=== PATIENT | female | born 1960 | race Caucasian/White ===

== ENCOUNTER 2016-03-12 15:53 | Emergency (ER) | payer MEDICAID ==
[2016-03-12 15:54] VITALS: BMI 30.4
[2016-03-12 16:22] VITALS: TEMP 98.3
[2016-03-12 16:45] LABS: AUTOMATED BASOPHIL 1.2 % (0-2); AUTOMATED EOSINOPHIL 4.1 % (0-5); AUTOMATED LYMPH 42.3 % (17-44); AUTOMATED MONOCYTE 8.2 % (3-10); AUTOMATED NEUTROPHIL 44.2 % (45-76); MPV 7.7 fL (7.4-10.4)
[2016-03-12 16:52] LABS: BLOOD UREA NITROGEN 12 MG/DL (7-17); CALCIUM 9.5 MG/DL (8.4-10.2); CALCULATED OSMOLALITY 275 MOs/Kg (270-290); CHLORIDE 103 mEq/L (98-107); GLUCOSE 130 MG/DL (70-99); SODIUM LEVEL 142 mEq/L (137-146); TOTAL PROTEIN 7.7 G/DL (6.3-8.2)
[2016-03-12 17:04] LABS: LEUKOCYTES/URINE TRACE (NEGATIVE); NITRITE/URINE NEG (NEGATIVE); URINE OCCULT BLOOD NEG (NEG/TRACE)
--- NOTE | 2016-03-12 18:10 | EDPRACDOC ---
- General Information Chief Complaint: Abdominal Pain Stated Complaint: RT UPPER ABD PAIN & SWELLING Time Seen by Provider: 03/12/16 17:57 Information Source: Patient Mode Of Arrival: Car Home Medications: Home Medications Albuterol Sulfate [Proair Hfa] 2 puff INH Q6H PRN 09/04/13 Lisinopril [Zestril] 10 mg PO DAILY 09/04/13 Omeprazole 40 mg PO DAILY 12/05/14 Alprazolam [Xanax] 1 mg PO DAILY PRN 03/12/16 Amlodipine [Norvasc] 10 mg PO DAILY 03/12/16 Butalb/Acetamin/Caffeine [Fioricet] 1 tab PO Q4-6H PRN 03/12/16 Hydrocodone/Acetaminophen [[place] 10-325 Tablet] 1 tab PO BID PRN 03/12/16 Oxycodone HCl [Roxicodone] 5 mg PO Q4 PRN #10 tablet 03/12/16 Allergies/Adverse Reactions: Allergies Allergy/AdvReac Type Severity Reaction Status Date / Time codeine [Codeine] Allergy Unknown Nausea/Vomi Verified 12/13/15 12:20 ting Sulfa (Sulfonamide Allergy See Verified 12/13/15 12:20 Antibiotics) Comments - History of Present Illness Onset: 2 weeks HPI: PT WITH RUQ PAIN, FLARES UP WHEN SHE EATS. HAD GALLBLADDER REMOVED 1 YEAR AGO BY [facility]. H/O HIATAL HERNIA. NO NAUSEA. PARTIAL HYSTERECTOMY FALL 2015. PAIN WORSE WITH STANDING OR WALKING AROUND. FEELS LIKE SHE IS GOING TO PASS OUT. SOME SOB TODAY. PAIN WILL HIT SUDDENLY. PAIN 8/10, RADIATES TO RIGHT BACK. Last Menstrual Period: PARTIAL HYST : No Female Abdominal History: Reports: UTI ED Past Medical History - History Reviewed Yes Nurses notes reviewed and agree except as marked - Patient Medical History Neurological History: Reports: Seizures (epilepsy), Migraine Cardiac History: Reports: Hypertension, Congestive Heart Failure (ENLARGED HEART ) Respiratory History: Reports: Asthma GI/ History: Reports: Urinary Tract Infection, Kidney Stones Musculoskeletal History: Reports: Arthritis (osteoarthritis) Psychological History: Reports: Anxiety. Denies: Depression, Substance Use Disorder Surgical History: Reports: Cholecystectomy, Hernia Surgery (Umbilical hernia repair 2013). Denies: Hysterectomy - Family Medical History Reports: Hypertension (mom dad sister, brother), Diabetes (Mother. sister), Cancer (brother lung mets to brain (agent orange)), Stroke (mom dad), Cardiac Disorders (Mother had 1st [place] in her early 30s.) - Social Medical History Smoking Status: Never smoker Social History: Denies: Substance Use Disorder EDM Review of Systems - Review of Systems ROS Negative Except as Marked: Yes All systems reviewed and were negative except as marked Constitutional: No Symptoms Reported Eyes: No Symptoms Reported - Physical Exam Constitutional: Alert (Awake), No apparent distress Oriented to: Time, Person, Place Last recorded Vital Signs: Last Vital Signs Temp 98.3 F 03/12/16 16:19 Pulse 78 03/12/16 20:22 Resp 20 03/12/16 20:22 BP 132/73 03/12/16 20:22 Pulse Ox 97 03/12/16 20:22 Oxygen Pulse Oxygen Saturation 97 O2 Device Room Air Oxygen Flow Rate Fraction of Inspired Oxygen ( FIO2) - HEENT Head: Normal ( normocephalic) Eye Exam: Normal (PERRL, EOMI, Sclera white) Oropharynx: Normal (Pharynx:Moist without exudate,Gums-no swelling) Nose: No Symptoms Reported (septum midline) Neck: Normal (FROM, trachea at midline) - Respiratory/Cardiovascular Respiratory: Normal - CTA (BBS clear to auscultation without adventitious sounds ) Cardiovascular: Normal (RRR without murmur, gallop or rub) - GI Auscultation: Normal (NABS) Palpation: Normal (Soft,No rebound or guarding, non distended) Tenderness: Moderate, RUQ (UNDER ANTERIOR COSTAL MARGIN.) Harman's Sign: Negative - Musculoskeletal Back: Normal (Non-Tender) Extremities: Normal (Normal tone, Pulses 2+ No cyanosis or edema, FROM) - Integumentary Skin: Normal, Warm, Dry Lymphatics: Normal (no adenopathy) - Neurologic Memory Impaired: Normal Motor Function: Normal (Normal tone, Pulses 2+ No cyanosis or edema, FROM) Cranial Nerve: Normal (CN II-X11 intact sensation, strength 5/5) Cerebellar: Normal Mood Description: Normal Perception: Normal - Results 03/12/16 16:23 03/12/16 16:23 WBC 7.4 xk/uL (3.8-10.8) 03/12/16 16:23 RBC 4.37 xM/uL (4.20-5.40) 03/12/16 16:23 Hgb 13.3 g/dL (12.0-16.0) 03/12/16 16:23 Hct 38.8 % (36-47) 03/12/16 16:23 MCV 89 fL (81-99) 03/12/16 16:23 MCH 30.4 pg (27-32) 03/12/16 16:23 MCHC 34.2 g/dl (33-36) 03/12/16 16:23 RDW 13.4 % (11.5-14.5) 03/12/16 16:23 Plt Count 285 xk/uL (130-400) 03/12/16 16:23 MPV 7.7 fL (7.4-10.4) 03/12/16 16:23 Neut % (Auto) 44.2 % (45-76) L 03/12/16 16:23 Lymph % (Auto) 42.3 % (17-44) 03/12/16 16:23 [place] % (Auto) 8.2 % (3-10) 03/12/16 16:23 Eos % (Auto) 4.1 % (0-5) 03/12/16 16:23 Baso % (Auto) 1.2 % (0-2) 03/12/16 16:23 Absolute Neuts (auto) 3.26 xk/uL (1.7-8.2) 03/12/16 16:23 Absolute Lymphs (auto) 3.11 xk/uL (0.65-4.75) 03/12/16 16:23 D-Dimer Quant (PE/DVT) 484 ng/mL (<500) 03/12/16 16:23 Sodium 142 mEq/L (137-146) 03/12/16 16:23 Potassium 3.4 mEq/L (3.5-5.1) L 03/12/16 16:23 Chloride 103 mEq/L (98-107) 03/12/16 16:23 Carbon Dioxide 26 mMOL/L (22-33) 03/12/16 16:23 Anion Gap 16 mEq/L (8-16) 03/12/16 16:23 BUN 12 MG/DL (7-17) 03/12/16 16:23 Creatinine 0.90 MG/DL (0.52-1.04) 03/12/16 16:23 Estimated GFR (MDRD) > 60 mL/min (>=60) 03/12/16 16:23 Glucose 130 MG/DL (70-99) H 03/12/16 16:23 Calculated Osmolality 275 MOs/Kg (270-290) 03/12/16 16:23 Calcium 9.5 MG/DL (8.4-10.2) 03/12/16 16:23 Total Bilirubin 0.5 MG/DL (0.2-1.3) 03/12/16 16:23 AST 35 IU/L (14-36) 03/12/16 16:23 ALT 54 IU/L (9-52) H 03/12/16 16:23 Alkaline Phosphatase 76 IU/L (38-126) 03/12/16 16:23 Total Protein 7.7 G/DL (6.3-8.2) 03/12/16 16:23 Albumin 4.4 G/DL (3.5-5.0) 03/12/16 16:23 Lipase 156 U/L (23-300) 03/12/16 16:23 Urine Color Yellow 03/12/16 16:23 Urine Clarity Sl cldy 03/12/16 16:23 Urine pH 6.0 (5.0-8.0) 03/12/16 16:23 Ur Specific [place] 1.015 (1.003-1.035) 03/12/16 16:23 Urine Protein Neg (NEG/TRACE) 03/12/16 16:23 Urine Glucose (UA) Neg (NEGATIVE) 03/12/16 16:23 Urine Ketones Neg (NEGATIVE) 03/12/16 16:23 Urine Occult Blood Neg (NEG/TRACE) 03/12/16 16:23 Urine Nitrite Neg (NEGATIVE) 03/12/16 16:23 Urine Bilirubin Neg (NEGATIVE) 03/12/16 16:23 Urine Urobilinogen <2.0 MG/DL (0-1) 03/12/16 16:23 Ur Leukocyte Esterase Trace (NEGATIVE) H 03/12/16 16:23 Urine RBC 2-5 (0-5) 03/12/16 16:23 Urine WBC 10-20 (0-5) H 03/12/16 16:23 Ur Epithelial Cells 2+ 03/12/16 16:23 Urine Bacteria Few (NEG/FEW) 03/12/16 16:23 Urine Mucus Occ (NEG/OCC) 03/12/16 16:23 Lab Results 03/12/16 03/12/16 03/12/16 16:23 16:23 16:23 WBC 7.4 RBC 4.37 Hgb 13.3 Hct 38.8 MCV 89 MCH 30.4 MCHC 34.2 RDW 13.4 Plt Count 285 MPV 7.7 Neut % (Auto) 44.2 L Lymph % (Auto) 42.3 [place] % (Auto) 8.2 Eos % (Auto) 4.1 Baso % (Auto) 1.2 Absolute Neuts (auto) 3.26 Absolute Lymphs (auto) 3.11 D-Dimer Quant (PE/DVT) 484 Sodium Potassium Chloride Carbon Dioxide Anion Gap BUN Creatinine Estimated GFR (MDRD) Glucose Calculated Osmolality Calcium Total Bilirubin AST ALT Alkaline Phosphatase Total Protein Albumin Lipase Urine Color Yellow Urine Clarity Sl cldy Urine pH 6.0 Ur Specific [place] 1.015 Urine Protein Neg Urine Glucose (UA) Neg Urine Ketones Neg Urine Occult Blood Neg Urine Nitrite Neg Urine Bilirubin Neg Urine Urobilinogen <2.0 Ur Leukocyte Esterase Trace H Urine RBC 2-5 Urine WBC 10-20 H Ur Epithelial Cells 2+ Urine Bacteria Few Urine Mucus Occ 03/12/16 16:23 WBC RBC Hgb Hct MCV MCH MCHC RDW Plt Count MPV Neut % (Auto) Lymph % (Auto) [place] % (Auto) Eos % (Auto) Baso % (Auto) Absolute Neuts (auto) Absolute Lymphs (auto) D-Dimer Quant (PE/DVT) Sodium 142 Potassium 3.4 L Chloride 103 Carbon Dioxide 26 Anion Gap 16 BUN 12 Creatinine 0.90 Estimated GFR (MDRD) > 60 Glucose 130 H Calculated Osmolality 275 Calcium 9.5 Total Bilirubin 0.5 AST 35 ALT 54 H Alkaline Phosphatase 76 Total Protein 7.7 Albumin 4.4 Lipase 156 Urine Color Urine Clarity Urine pH Ur Specific [place] Urine Protein Urine Glucose (UA) Urine Ketones Urine Occult Blood Urine Nitrite Urine Bilirubin Urine Urobilinogen Ur Leukocyte Esterase Urine RBC Urine WBC Ur Epithelial Cells Urine Bacteria Urine Mucus - Additional Information I FEEL PAIN LIKELY CHEST WALL OR ADHESIONS FROM PRIOR SURGERY. Decision Time to Discharge: 20:43 - Departure Yes I personally saw and evaluated the patient. Disposition: Home Condition: Stable Final Diagnosis: Abdominal pain, RUQ abdominal pain Instructions: Acute Abdominal Pain (ED), Abdominal Pain (ED) Education/Counseling Given To: Patient Education/Counseling Given Regarding: Diagnosis Referrals: Zachariah Whitehead MD [Staff Physician] - One Week Prescriptions: Oxycodone HCl [Roxicodone] 5 mg PO Q4 PRN #10 tablet PRN Reason: Pain
[2016-03-12] MEDS ORDERED: OXYCODONE HCL 5 MG TABLET PO ONE (18:13)
--- NOTE | 2016-03-12 18:39 | DIRPT ---
CLINICAL DATA: Shortness of breath and upper abdominal pain EXAM: CHEST 2 VIEW COMPARISON: October 27, 2014 FINDINGS: There is no edema or consolidation. The heart size and pulmonary vascularity are normal. No adenopathy. There is degenerative change in thoracic spine. IMPRESSION: No edema or consolidation. Electronically Signed By: Duane Hale III, M.D. On: 03/12/2016 18:36
[2016-03-12] MEDS ORDERED: HYDROmorphone 1 MG INJECTION IV ONE (19:58)
[2016-03-12] MEDS ORDERED: Pharmacy Review for Metformin - IV Contrast Given SCH (20:00)
[2016-03-12] MEDS ORDERED: HYDROmorphone 1 MG INJECTION ONE (20:20)
--- NOTE | 2016-03-12 20:30 | DIRPT ---
CLINICAL DATA: Upper abdominal pain, primarily right side EXAM: CT ABDOMEN AND PELVIS WITH CONTRAST TECHNIQUE: Multidetector CT imaging of the abdomen and pelvis was performed using the standard protocol following bolus administration of intravenous contrast. CONTRAST: 100 mL Isovue 370 nonionic COMPARISON: November 28, 2014 FINDINGS: Lower chest: There is mild posterior right base atelectasis. Lung bases otherwise appear clear. Hepatobiliary: There is hepatic steatosis. No focal liver lesions are identified. The gallbladder is absent. There is no biliary duct dilatation. Pancreas: No pancreatic mass or inflammatory focus. Spleen: No splenic lesions are identified. Adrenals/Urinary Tract: Adrenals appear normal bilaterally. There are parapelvic cysts on the left. There is a cyst in the periphery of the left kidney measuring 2.7 x 2.6 cm. There is a cm by second cyst on the left measuring 1.6 x 1.5 cm. There is a tiny cyst arising from the upper pole of the right kidney. There is no demonstrable hydronephrosis on either side. There is a 2 mm nonobstructing calculus in the mid to lower pole right kidney. No other intrarenal calculi are identified. There are no ureteral calculi on either side. The urinary bladder is midline with wall thickness within normal limits. Stomach/Bowel: There is no bowel wall or mesenteric thickening. No bowel obstruction. No free air or portal venous air. Vascular/Lymphatic: There are foci of atherosclerotic calcification in the aorta. No abdominal aortic aneurysm. The major mesenteric vessels appear patent. There is no demonstrable adenopathy in the abdomen or pelvis. Reproductive: Uterus is absent. There is no pelvic mass or pelvic fluid collection. Other: The appendix appears normal. No demonstrable abscess or ascites in the abdomen or pelvis. Musculoskeletal: No demonstrable blastic or lytic bone lesions. No intramuscular or abdominal wall lesions. IMPRESSION: 2 mm calculus lower pole right kidney. No hydronephrosis on either side. No ureteral calculi on either side. Gallbladder absent. Uterus absent. Hepatic steatosis without focal liver lesion. No bowel obstruction. No abscess. Appendix region appears normal. Electronically Signed By: Duane Hale III, M.D. On: 03/12/2016 20:27
[2016-03-12 21:06] VITALS: BP 121/76; PULSE 73
== END 2016-03-12 21:06 | disposition home or self-care (01) ==
LOC: ED 15:53
DX: R10.11 Right upper quadrant pain (principal)
CPT/HCPCS: 36415; 71020; 74177; 80053; 81001; 83690; 85025; 85379; 96374; 99283; A9698; J1170; J3490